=== PATIENT | female | born 1960 | race Caucasian/White ===

== ENCOUNTER 2018-04-14 06:24 | Emergency (ER) | payer OTHER ==
[2018-04-14 06:53] LABS: ADD MAN DIFF? NO
[2018-04-14] MEDS: HYDROmorphONE 1 MG/ML SYG IV (06:54)
[2018-04-14] MEDS: ONDANSETRON 4 MG INJ IV (06:54)
[2018-04-14 06:56] LABS: WHITE BLOOD COUNT 4.2 10^3/ul (4.8-10.8)
[2018-04-14 06:56] LABS: EOSINOPHILS # 0.1 10^3/ul (0.0-0.5); EOSINOPHILS % 3.1 % (0.0-7.0); HEMATOCRIT 42.6 % (37.0-47.0); HEMOGLOBIN 14.4 g/dl (12.0-16.0); LYMPHOCYTES # 1.5 10^3/ul (0.8-2.9); LYMPHOCYTES % 35.1 % (15.0-51.0); MEAN CORPUSCULAR HEMOGLOBIN 30.2 pg (29.0-33.0); MEAN CORPUSCULAR HGB CONC 33.8 g/dl (32.0-37.0); MEAN CORPUSCULAR VOLUME 89.3 fl (82.0-101.0); MEAN PLATELET VOLUME 9.8 fl (7.4-10.4); MONOCYTE # 0.4 10^3/ul (0.3-0.9); MONOCYTES % 10.6 % (0.0-11.0); NEUTROPHIL # 2.1 10^3/ul (1.6-7.5); PLATELET COUNT 267 10^3/UL (140-415); RED BLOOD COUNT 4.77 10^6/ul (4.20-5.40); RED CELL DISTRIBUTION WIDTH 13.2 % (11.5-14.5)
[2018-04-14 06:57] LABS: ADD UMIC YES; UR ASCORBIC ACID NEGATIVE (NEGATIVE); UR BILIRUBIN (Dip) NEGATIVE (NEGATIVE); UR BLOOD (Dip) NEGATIVE (NEGATIVE); UR CLARITY CLEAR (CLEAR); UR COLOR STRAW (YELLOW); UR GLUCOSE (Dip) NEGATIVE (NEGATIVE); UR KETONES (Dip) NEGATIVE (NEGATIVE); UR LEUKOCYTE ESTERASE (Dip) TRACE Leu/ul (NEGATIVE); UR NITRITE (Dip) NEGATIVE (NEGATIVE); UR RBC 0 /HPF (0-5); UR TOTAL PROTEIN (Dip) NEGATIVE (NEGATIVE); UR UROBILINOGEN (Dip) NEGATIVE (NEGATIVE); UR WBC 3 /HPF (0-5)
[2018-04-14 07:17] LABS: INR 0.87; PROTIME 11.9 Sec (11.9-14.9); PT RATIO 0.9
[2018-04-14 07:18] LABS: PARTIAL THROMBOPLASTIN TIME 29.6 Sec (25.0-35.0)
[2018-04-14 07:24] LABS: ALANINE AMINOTRANSFERASE 26 IU/L (13-69); ALBUMIN 3.5 g/dl (3.3-4.9); ALBUMIN/GLOBULIN RATIO 1.16; ALKALINE PHOSPHATASE 73 IU/L (42-121); ANION GAP 14 (8-16); ASPARTATE AMINO TRANSFERASE 20 IU/L (15-46); BILIRUBIN,INDIRECT 0.4 mg/dl (0-1.1); BILIRUBIN,TOTAL 0.4 mg/dl (0.2-1.3); BLOOD UREA NITROGEN 24 mg/dl (7-20); CALCIUM 8.6 mg/dl (8.4-10.2); CARBON DIOXIDE 28 mmol/L (21-31); CHLORIDE 105 mmol/L (97-110); CREATININE 0.71 mg/dl (0.44-1.00); GLUCOSE 100 mg/dl (70-220); LIPASE 74 U/L (23-300); POTASSIUM 3.5 mmol/L (3.5-5.1); SODIUM 143 mmol/L (135-144); TOTAL PROTEIN 6.5 g/dl (6.1-8.1)
[2018-04-14] MEDS: SOD CHLORIDE 0.9% 1,000 ML IV (07:55)
== END 2018-04-14 11:11 | disposition short-term general hospital (02) ==
LOC: E/R 06:24
DX: R10.84 Generalized abdominal pain (principal); R19.09 Other intra-abdominal and pelvic swelling, mass and lump; I10 Essential (primary) hypertension; C73 Malignant neoplasm of thyroid gland; Z79.82 Long term (current) use of aspirin
CPT/HCPCS: 36415; 71045; 80053; 81001; 83690; 85025; 85610; 85730; 96361; 96374; 96375; 99285-25

== ENCOUNTER 2018-04-27 07:30 | Inpatient (IN) | payer OTHER ==
[2018-04-27] MEDS: ONDANSETRON 4 MG INJ IV ×2 (09:20→12:27)
[2018-04-27] MEDS: HYDROmorphONE 1 MG/ML SYG IV ×5 (09:20→20:17)
[2018-04-27 09:23] LABS: ADD MAN DIFF? NO
[2018-04-27 09:32] LABS: BASOPHILS % 0.7 % (0.0-2.0); EOSINOPHILS # 0.1 10^3/ul (0.0-0.5); EOSINOPHILS % 2.2 % (0.0-7.0); HEMATOCRIT 43.5 % (37.0-47.0); HEMOGLOBIN 14.8 g/dl (12.0-16.0); LYMPHOCYTES # 1.4 10^3/ul (0.8-2.9); LYMPHOCYTES % 26.1 % (15.0-51.0); MEAN CORPUSCULAR HEMOGLOBIN 30.3 pg (29.0-33.0); MEAN PLATELET VOLUME 10.5 fl (7.4-10.4); MONOCYTE # 0.7 10^3/ul (0.3-0.9); MONOCYTES % 12.4 % (0.0-11.0); NEUTROPHIL # 3.2 10^3/ul (1.6-7.5); NEUTROPHILS % 58.4 % (39.0-77.0); PLATELET COUNT 262 10^3/UL (140-415); RED BLOOD COUNT 4.89 10^6/ul (4.20-5.40)
[2018-04-27 09:32] LABS: WHITE BLOOD COUNT 5.4 10^3/ul (4.8-10.8)
[2018-04-27 09:50] LABS: ALANINE AMINOTRANSFERASE 67 IU/L (13-69); ALBUMIN 3.6 g/dl (3.3-4.9); ALBUMIN/GLOBULIN RATIO 1.16; ALKALINE PHOSPHATASE 93 IU/L (42-121); ANION GAP 12 (8-16); ASPARTATE AMINO TRANSFERASE 102 IU/L (15-46); BILIRUBIN,INDIRECT 0.5 mg/dl (0-1.1); BILIRUBIN,TOTAL 0.5 mg/dl (0.2-1.3); BLOOD UREA NITROGEN 21 mg/dl (7-20); CALCIUM 8.8 mg/dl (8.4-10.2); CARBON DIOXIDE 30 mmol/L (21-31); CREATININE 0.66 mg/dl (0.44-1.00); GLUCOSE 102 mg/dl (70-220); POTASSIUM 3.8 mmol/L (3.5-5.1); SODIUM 141 mmol/L (135-144); TOTAL PROTEIN 6.7 g/dl (6.1-8.1)
[2018-04-27 09:54] LABS: CHLORIDE 103 mmol/L (97-110)
[2018-04-27] MEDS: IOHEXOL 300MG/ML 150 ML BTL (10:15)
[2018-04-27] MEDS: SOD CHLORIDE 0.9% 100 ML (10:15)
[2018-04-27 10:18] LABS: LIPASE 9179 U/L (23-300)
[2018-04-27] MEDS: SOD CHLORIDE 0.9% 1,000 ML IV (12:25)
[2018-04-27] MEDS ORDERED: SOD CHLORIDE 0.9% 1,000 ML IV (12:27)
[2018-04-27] MEDS ORDERED: BISACODYL 10 MG SUPP PR (12:30)
[2018-04-27] MEDS ORDERED: ACETAMINOPHEN 650 MG SUPP PR (12:30)
[2018-04-27] MEDS ORDERED: morphine 2 MG INJ IV (12:30)
[2018-04-27] MEDS ORDERED: ACETAMINOPHEN 325 MG TAB PO (12:30)
[2018-04-27] MEDS ORDERED: ONDANSETRON 4 MG INJ IV ×2 (12:30)
[2018-04-27] MEDS ORDERED: NACL 0.9% 3 ML SYG IV (12:30)
[2018-04-27] MEDS ORDERED: MECLIZINE 25 MG TAB PO (13:00)
[2018-04-27] MEDS: DEXTROSE 5%-0.9% NACL 1,000 ML IV (14:23)
[2018-04-27] MEDS: ATORVASTATIN 10 MG TAB PO (20:15)
[2018-04-27] MEDS: DOCUSATE SODIUM 100 MG CAP PO (20:20)
[2018-04-28] MEDS: HYDROmorphONE 1 MG/ML SYG IV ×2 (00:13→22:21)
[2018-04-28] MEDS: DEXTROSE 5%-0.9% NACL 1,000 ML IV ×4 (00:30→21:14)
[2018-04-28] MEDS: PANTOPRAZOLE 40 MG INJ IV (05:38)
[2018-04-28] MEDS: LEVOTHYROXINE 100 MCG VIAL IV (05:38)
[2018-04-28] MEDS: HYDROmorphONE 0.5 MG/0.5 ML SYG IV ×2 (05:39→12:31)
[2018-04-28 05:46] LABS: ADD MAN DIFF? NO
[2018-04-28 06:05] LABS: BASOPHILS % 0.9 % (0.0-2.0); EOSINOPHILS # 0.1 10^3/ul (0.0-0.5); HEMATOCRIT 41.9 % (37.0-47.0); LYMPHOCYTES # 1.4 10^3/ul (0.8-2.9); LYMPHOCYTES % 41.1 % (15.0-51.0); MEAN CORPUSCULAR HGB CONC 33.4 g/dl (32.0-37.0); MEAN CORPUSCULAR VOLUME 89.9 fl (82.0-101.0); MONOCYTE # 0.5 10^3/ul (0.3-0.9); MONOCYTES % 14.4 % (0.0-11.0); NEUTROPHIL # 1.3 10^3/ul (1.6-7.5); NEUTROPHILS % 40.3 % (39.0-77.0); PLATELET COUNT 235 10^3/UL (140-415); RED BLOOD COUNT 4.66 10^6/ul (4.20-5.40)
[2018-04-28 06:05] LABS: WHITE BLOOD COUNT 3.3 10^3/ul (4.8-10.8)
[2018-04-28 06:19] LABS: INR 0.99; PROTIME 13.2 Sec (11.9-14.9)
[2018-04-28] MEDS ORDERED: FENTAnyl 50 MCG/ML VIAL (07:00)
[2018-04-28] MEDS ORDERED: LEVOTHYROXINE 150 MCG TAB PO (07:00)
[2018-04-28 07:15] LABS: ALANINE AMINOTRANSFERASE 56 IU/L (13-69); ALBUMIN 3.3 g/dl (3.3-4.9); ALBUMIN/GLOBULIN RATIO 1.22; ALKALINE PHOSPHATASE 76 IU/L (42-121); AMYLASE 102 U/L (11-123); ANION GAP 10 (8-16); ASPARTATE AMINO TRANSFERASE 61 IU/L (15-46); BILIRUBIN,INDIRECT 0.6 mg/dl (0-1.1); BILIRUBIN,TOTAL 0.6 mg/dl (0.2-1.3); BLOOD UREA NITROGEN 13 mg/dl (7-20); CALCIUM 8.3 mg/dl (8.4-10.2); CARBON DIOXIDE 33 mmol/L (21-31); CHLORIDE 104 mmol/L (97-110); CHOL/HDL RATIO 3.5 RATIO; CHOLESTEROL 127 mg/dl (100-200); CREATININE 0.66 mg/dl (0.44-1.00); GLUCOSE 107 mg/dl (70-220); HDL CHOLESTEROL 36 mg/dl (37-92); LDL CHOLESTEROL,CALCULATED 63 mg/dl; LIPASE 126 U/L (23-300); POTASSIUM 3.9 mmol/L (3.5-5.1); SODIUM 143 mmol/L (135-144); TRIGLYCERIDES 138 mg/dl (0-149)
[2018-04-28] MEDS: CITALOPRAM 20 MG TAB PO (08:48)
[2018-04-28] MEDS: LOSARTAN 25 MG TAB PO (08:48)
[2018-04-28] MEDS: CALCIUM CARBONATE 1.25 GM TAB PO (08:48)
[2018-04-28] MEDS ORDERED: PROPOFOL 20 ML (18:29)
[2018-04-28] MEDS ORDERED: HYDROmorphONE 1 MG/5 ML IV SYRINGE IV ×3 (18:30)
[2018-04-28] MEDS ORDERED: MEPERIDINE 25 MG INJ IV (18:30)
[2018-04-28] MEDS ORDERED: DIPHENHYDRAMINE 50 MG INJ IV (18:30)
[2018-04-28] MEDS ORDERED: ONDANSETRON 4 MG INJ IV (18:30)
[2018-04-28] MEDS ORDERED: ONDANSETRON 4 MG INJ (18:53)
[2018-04-28] MEDS ORDERED: SUCCINYLCHOLINE CHLORIDE 100 MG/5 ML SYG IV (18:53)
[2018-04-28] MEDS ORDERED: METOCLOPRAMIDE 10 MG INJ (18:53)
[2018-04-28] MEDS: INDOMETHACIN 50 MG SUPP PR (19:00)
[2018-04-28] MEDS ORDERED: CEFAZOLIN 1 GM INJ (19:33)
[2018-04-28] MEDS: ATORVASTATIN 10 MG TAB PO (22:21)
[2018-04-29] MEDS: PANTOPRAZOLE 40 MG INJ IV (05:20)
[2018-04-29] MEDS: HYDROmorphONE 0.5 MG/0.5 ML SYG IV (05:21)
[2018-04-29] MEDS: LEVOTHYROXINE 100 MCG VIAL IV (05:21)
[2018-04-29 06:19] LABS: ADD MAN DIFF? NO
[2018-04-29 06:32] LABS: WHITE BLOOD COUNT 3.8 10^3/ul (4.8-10.8)
[2018-04-29 06:32] LABS: BASOPHILS % 0.5 % (0.0-2.0); EOSINOPHILS # 0.1 10^3/ul (0.0-0.5); EOSINOPHILS % 1.8 % (0.0-7.0); HEMATOCRIT 40.2 % (37.0-47.0); HEMOGLOBIN 13.5 g/dl (12.0-16.0); MEAN CORPUSCULAR HEMOGLOBIN 29.8 pg (29.0-33.0); MEAN CORPUSCULAR HGB CONC 33.6 g/dl (32.0-37.0); MEAN CORPUSCULAR VOLUME 88.7 fl (82.0-101.0); MEAN PLATELET VOLUME 9.9 fl (7.4-10.4); MONOCYTE # 0.4 10^3/ul (0.3-0.9); MONOCYTES % 11.2 % (0.0-11.0); NEUTROPHIL # 2.4 10^3/ul (1.6-7.5); NEUTROPHILS % 61.2 % (39.0-77.0); PLATELET COUNT 246 10^3/UL (140-415); RED BLOOD COUNT 4.53 10^6/ul (4.20-5.40); RED CELL DISTRIBUTION WIDTH 13.1 % (11.5-14.5)
[2018-04-29 07:10] LABS: ALANINE AMINOTRANSFERASE 54 IU/L (13-69); ALBUMIN 3.3 g/dl (3.3-4.9); ALBUMIN/GLOBULIN RATIO 1.22; ALKALINE PHOSPHATASE 82 IU/L (42-121); AMYLASE 64 U/L (11-123); ANION GAP 10 (8-16); ASPARTATE AMINO TRANSFERASE 43 IU/L (15-46); BILIRUBIN,INDIRECT 0.7 mg/dl (0-1.1); BILIRUBIN,TOTAL 0.7 mg/dl (0.2-1.3); BLOOD UREA NITROGEN 11 mg/dl (7-20); CALCIUM 8.2 mg/dl (8.4-10.2); CARBON DIOXIDE 29 mmol/L (21-31); CHLORIDE 106 mmol/L (97-110); CREATININE 0.55 mg/dl (0.44-1.00); GLUCOSE 117 mg/dl (70-220); LIPASE 68 U/L (23-300); POTASSIUM 3.2 mmol/L (3.5-5.1); SODIUM 142 mmol/L (135-144)
[2018-04-29] MEDS: CALCIUM CARBONATE 1.25 GM TAB PO (08:50)
[2018-04-29] MEDS: CITALOPRAM 20 MG TAB PO (08:50)
[2018-04-29] MEDS: LOSARTAN 25 MG TAB PO (08:51)
[2018-04-29] MEDS: MAGNESIUM HYDROXIDE 30ML CUP PO (08:57)
[2018-04-29] MEDS: DEXTROSE 5%-0.9% NACL 1,000 ML IV ×2 (10:10)
[2018-04-29] MEDS: POTASSIUM CHLORIDE (SR) 20 MEQ TAB PO (12:00)
[2018-04-29] MEDS ORDERED: HYDROmorphONE 4 MG TAB PO (12:00)
[2018-04-29] MEDS: MINERAL OIL 30ML CUP PO ×2 (13:12→20:09)
[2018-04-29] MEDS: HYDROmorphONE 2 MG TAB PO (14:41)
[2018-04-29] MEDS: HYDROCODONE/APAP (10/325) TAB PO ×2 (18:18→22:53)
[2018-04-29] MEDS: ATORVASTATIN 10 MG TAB PO (20:09)
[2018-04-30] MEDS: ACETAMINOPHEN 325 MG TAB PO (01:43)
[2018-04-30] MEDS ORDERED: HYDROmorphONE 2 MG TAB PO (02:30)
[2018-04-30] MEDS: HYDROmorphONE 2 MG TAB PO ×2 (02:57→21:05)
[2018-04-30] MEDS: LEVOTHYROXINE 150 MCG TAB PO (05:16)
[2018-04-30] MEDS: PANTOPRAZOLE (EC) 40 MG TAB PO (05:16)
[2018-04-30 06:53] LABS: MAGNESIUM 1.9 mg/dl (1.7-2.5)
[2018-04-30 06:53] LABS: PHOSPHORUS 3.3 mg/dl (2.5-4.9)
[2018-04-30 07:10] LABS: ANION GAP 11 (8-16); BLOOD UREA NITROGEN 15 mg/dl (7-20); CARBON DIOXIDE 30 mmol/L (21-31); CHLORIDE 104 mmol/L (97-110); GLUCOSE 101 mg/dl (70-220); POTASSIUM 3.7 mmol/L (3.5-5.1); SODIUM 141 mmol/L (135-144)
[2018-04-30] MEDS: MINERAL OIL 30ML CUP PO ×3 (08:53→20:32)
[2018-04-30] MEDS: CITALOPRAM 20 MG TAB PO (08:53)
[2018-04-30] MEDS: CALCIUM CARBONATE 1.25 GM TAB PO (08:53)
[2018-04-30] MEDS: LOSARTAN 25 MG TAB PO (08:54)
[2018-04-30] MEDS: BISACODYL (EC) 5 MG TAB PO (11:34)
[2018-04-30] MEDS ORDERED: HYDROmorphONE 0.5 MG/0.5 ML SYG IV (12:00)
[2018-04-30] MEDS: MINERAL OIL 133 ML ENEMA PR (13:14)
[2018-04-30] MEDS: ATORVASTATIN 10 MG TAB PO (20:32)
[2018-05-01] MEDS: LEVOTHYROXINE 150 MCG TAB PO (05:38)
[2018-05-01] MEDS: PANTOPRAZOLE (EC) 40 MG TAB PO (05:38)
[2018-05-01 06:15] LABS: ADD MAN DIFF? NO
[2018-05-01 06:19] LABS: WHITE BLOOD COUNT 3.7 10^3/ul (4.8-10.8)
[2018-05-01 06:19] LABS: BASOPHILS % 1.1 % (0.0-2.0); EOSINOPHILS # 0.1 10^3/ul (0.0-0.5); EOSINOPHILS % 3.8 % (0.0-7.0); HEMATOCRIT 41.3 % (37.0-47.0); HEMOGLOBIN 13.8 g/dl (12.0-16.0); LYMPHOCYTES # 1.5 10^3/ul (0.8-2.9); LYMPHOCYTES % 39.6 % (15.0-51.0); MEAN CORPUSCULAR HEMOGLOBIN 29.7 pg (29.0-33.0); MEAN CORPUSCULAR HGB CONC 33.4 g/dl (32.0-37.0); MEAN PLATELET VOLUME 9.8 fl (7.4-10.4); MONOCYTE # 0.5 10^3/ul (0.3-0.9); MONOCYTES % 12.6 % (0.0-11.0); NEUTROPHIL # 1.6 10^3/ul (1.6-7.5); NEUTROPHILS % 42.6 % (39.0-77.0); PLATELET COUNT 249 10^3/UL (140-415); RED BLOOD COUNT 4.64 10^6/ul (4.20-5.40)
[2018-05-01 06:39] LABS: ANION GAP 10 (8-16); BLOOD UREA NITROGEN 14 mg/dl (7-20); CALCIUM 8.5 mg/dl (8.4-10.2); CARBON DIOXIDE 29 mmol/L (21-31); CHLORIDE 106 mmol/L (97-110); CREATININE 0.65 mg/dl (0.44-1.00); GLUCOSE 92 mg/dl (70-220); POTASSIUM 3.6 mmol/L (3.5-5.1); SODIUM 141 mmol/L (135-144)
[2018-05-01 06:41] LABS: MAGNESIUM 2.1 mg/dl (1.7-2.5)
[2018-05-01 06:43] LABS: INR 0.95; PROTIME 12.8 Sec (11.9-14.9)
[2018-05-01 06:44] LABS: PARTIAL THROMBOPLASTIN TIME 30.5 Sec (25.0-35.0)
[2018-05-01] MEDS: MINERAL OIL 30ML CUP PO ×5 (08:14→20:10)
[2018-05-01] MEDS: CALCIUM CARBONATE 1.25 GM TAB PO (08:14)
[2018-05-01] MEDS: LOSARTAN 25 MG TAB PO (08:15)
[2018-05-01] MEDS: BISACODYL (EC) 5 MG TAB PO (08:15)
[2018-05-01] MEDS: CITALOPRAM 20 MG TAB PO (08:16)
[2018-05-01] MEDS: HYDROmorphONE 1 MG/ML SYG IV (10:24)
[2018-05-01] MEDS: LIDOCAINE 1% (MDV) 10 ML INJ ×2 (15:25)
[2018-05-01] MEDS: MIDAZOLAM 1 MG/ML 2 ML INJ (15:31)
[2018-05-01] MEDS: FENTAnyl 50 MCG/ML VIAL (15:32)
[2018-05-01] MEDS: SOD CHLORIDE 0.9% 500 ML (15:32)
[2018-05-01] MEDS: HYDROmorphONE 2 MG TAB PO (19:52)
[2018-05-01] MEDS: ATORVASTATIN 10 MG TAB PO (20:08)
[2018-05-02] MEDS: ACETAMINOPHEN 325 MG TAB PO (02:06)
[2018-05-02] MEDS: PANTOPRAZOLE (EC) 40 MG TAB PO (06:00)
[2018-05-02] MEDS: LEVOTHYROXINE 150 MCG TAB PO (06:00)
[2018-05-02] MEDS: HYDROmorphONE 2 MG TAB PO ×4 (06:05→21:32)
[2018-05-02] MEDS: BISACODYL (EC) 5 MG TAB PO (08:25)
[2018-05-02] MEDS: CITALOPRAM 20 MG TAB PO (08:25)
[2018-05-02] MEDS: LOSARTAN 25 MG TAB PO (08:26)
[2018-05-02] MEDS: MINERAL OIL 30ML CUP PO ×2 (08:29→13:54)
[2018-05-02] MEDS: CALCIUM CARBONATE 1.25 GM TAB PO (08:29)
[2018-05-02] MEDS ORDERED: MINERAL OIL 30ML CUP PO (14:30)
[2018-05-02] MEDS ORDERED: BETAMET NA PHOS/AC(6 MG/ML) 5ML INJ INJ (16:00)
[2018-05-02] MEDS ORDERED: BUPIVACAINE 0.5%/EPI (SDV) 30 ML INJ INJ (16:00)
[2018-05-02 18:29] LABS: CARCINOEMBRYONIC ANTIGEN 2.7 ng/ml (0.0-5.0)
[2018-05-02 18:33] LABS: CANCER ANTIGEN 19-9 10.4 U/ml (0.0-37.0)
[2018-05-02] MEDS: ATORVASTATIN 10 MG TAB PO (21:24)
[2018-05-02] MEDS: DOCUSATE SODIUM 100 MG CAP PO (21:32)
[2018-05-03] MEDS: HYDROmorphONE 2 MG TAB PO ×3 (03:21→18:13)
[2018-05-03] MEDS: LEVOTHYROXINE 150 MCG TAB PO (05:51)
[2018-05-03] MEDS: PANTOPRAZOLE (EC) 40 MG TAB PO (05:51)
[2018-05-03] MEDS: CALCIUM CARBONATE 1.25 GM TAB PO (08:46)
[2018-05-03] MEDS: CITALOPRAM 20 MG TAB PO (08:46)
[2018-05-03] MEDS: BISACODYL (EC) 5 MG TAB PO (08:47)
[2018-05-03] MEDS: LOSARTAN 25 MG TAB PO (08:48)
[2018-05-03] MEDS: MAGNESIUM HYDROXIDE 30ML CUP PO (08:52)
[2018-05-03] MEDS ORDERED: MAGNESIUM HYDROXIDE 30ML CUP PO (17:30)
== END 2018-05-03 20:35 | disposition home or self-care (01) | DRG 440 ==
LOC: E/R 07:30 → MS2 04-28 22:55
PROC: 0F798ZZ Dilation of Common Bile Duct, Via Natural or Artificial Opening Endoscopic (ICD-10-PCS; principal; 2018-04-28 16:00)
PROC: BF10YZZ Fluoroscopy of Bile Ducts using Other Contrast (ICD-10-PCS; 2018-04-28 16:00)
PROC: 0S993ZZ Drainage of Right Hip Joint, Percutaneous Approach (ICD-10-PCS; 2018-04-28 18:38)
DX: K85.90 Acute pancreatitis without necrosis or infection, unspecified (principal); E03.9 Hypothyroidism, unspecified; I10 Essential (primary) hypertension; R16.1 Splenomegaly, not elsewhere classified; E78.5 Hyperlipidemia, unspecified; K83.9 Disease of biliary tract, unspecified; E87.6 Hypokalemia; K66.9 Disorder of peritoneum, unspecified; M70.61 Trochanteric bursitis, right hip
CPT/HCPCS: 36415; 72170; 74177; 74181; 74330; 77012; 80048; 80053; 80061; 82150; 82378; 82382; 83690; 83735; 83835; 84100; 85025; 85610; 85730; 86301; 87081; 96374; 96375; 96376; 99285-25

== ENCOUNTER 2018-06-07 06:14 | Inpatient (IN) | payer OTHER ==
[2018-06-07] MEDS ORDERED: CEFAZOLIN 1 GM INJ (07:00)
[2018-06-07] MEDS: CEFAZOLIN 1 GM/50 ML (PMX) 50 ML IVPB (07:00)
[2018-06-07 07:42] LABS: ADD MAN DIFF? NO
[2018-06-07 07:44] LABS: BASOPHILS % 0.7 % (0.0-2.0); EOSINOPHILS # 0.1 10^3/ul (0.0-0.5); EOSINOPHILS % 2.3 % (0.0-7.0); HEMATOCRIT 41.3 % (37.0-47.0); HEMOGLOBIN 13.9 g/dl (12.0-16.0); LYMPHOCYTES # 1.4 10^3/ul (0.8-2.9); LYMPHOCYTES % 32.7 % (15.0-51.0); MEAN CORPUSCULAR HEMOGLOBIN 29.7 pg (29.0-33.0); MEAN CORPUSCULAR HGB CONC 33.7 g/dl (32.0-37.0); MEAN CORPUSCULAR VOLUME 88.2 fl (82.0-101.0); MEAN PLATELET VOLUME 9.9 fl (7.4-10.4); MONOCYTE # 0.4 10^3/ul (0.3-0.9); MONOCYTES % 8.7 % (0.0-11.0); NEUTROPHIL # 2.4 10^3/ul (1.6-7.5); NEUTROPHILS % 55.4 % (39.0-77.0); PLATELET COUNT 282 10^3/UL (140-415); RED BLOOD COUNT 4.68 10^6/ul (4.20-5.40)
[2018-06-07 07:44] LABS: WHITE BLOOD COUNT 4.4 10^3/ul (4.8-10.8)
[2018-06-07] MEDS: SOD CHLORIDE 0.9% 1,000 ML IV (07:48)
[2018-06-07 08:03] LABS: INR 0.88; PARTIAL THROMBOPLASTIN TIME 30.2 Sec (25.0-35.0); PT RATIO 0.9
[2018-06-07 08:07] LABS: HOLD TRANSMISSIONS 1
[2018-06-07 08:09] LABS: ALANINE AMINOTRANSFERASE 18 IU/L (13-69); ALBUMIN 3.4 g/dl (3.3-4.9); ALBUMIN/GLOBULIN RATIO 1.21; ALKALINE PHOSPHATASE 63 IU/L (42-121); ANION GAP 14 (8-16); ASPARTATE AMINO TRANSFERASE 23 IU/L (15-46); BILIRUBIN,INDIRECT 0.3 mg/dl (0-1.1); BILIRUBIN,TOTAL 0.3 mg/dl (0.2-1.3); BLOOD UREA NITROGEN 18 mg/dl (7-20); CALCIUM 8.6 mg/dl (8.4-10.2); CARBON DIOXIDE 24 mmol/L (21-31); CHLORIDE 110 mmol/L (97-110); GLUCOSE 103 mg/dl (70-220); POTASSIUM 3.6 mmol/L (3.5-5.1); SODIUM 144 mmol/L (135-144); TOTAL PROTEIN 6.2 g/dl (6.1-8.1)
[2018-06-07] MEDS ORDERED: hydrALAzine 20 MG INJ IV (11:00)
[2018-06-07] MEDS ORDERED: ONDANSETRON 4 MG INJ IV (11:00)
[2018-06-07] MEDS ORDERED: OXYCODONE/ACETAMINOPHEN (5/325) TAB PO ×2 (11:00)
[2018-06-07] MEDS ORDERED: MIDAZOLAM 1 MG/ML 2 ML INJ IV (11:00)
[2018-06-07] MEDS ORDERED: HYDROmorphONE 1 MG/5 ML IV SYRINGE IV ×3 (11:00)
[2018-06-07] MEDS ORDERED: morphine (1 MG/ML) 10ML SYRINGE IV ×3 (11:00)
[2018-06-07] MEDS ORDERED: ATROPINE 1 MG/10 ML SYRINGE IV (11:00)
[2018-06-07] MEDS ORDERED: FENTAnyl 50 MCG/ML VIAL IV ×2 (11:00)
[2018-06-07] MEDS ORDERED: DIPHENHYDRAMINE 50 MG INJ IV (11:00)
[2018-06-07] MEDS ORDERED: LABETALOL HCL 20MG INJ IV (11:00)
[2018-06-07] MEDS ORDERED: EPHEDrine SULFATE 50 MG/5 ML SYG IV (11:00)
[2018-06-07] MEDS ORDERED: PROPOFOL 20 ML (11:02)
[2018-06-07] MEDS ORDERED: LIDOCAINE 2% (SDV) 5 ML INJ (11:02)
[2018-06-07] MEDS ORDERED: ROCURONIUM 50 MG INJ (11:02)
[2018-06-07] MEDS ORDERED: MIDAZOLAM 1 MG/ML 2 ML INJ (11:02)
[2018-06-07] MEDS ORDERED: NEOSTIGMINE 3 MG/3 ML SYRINGE (11:02)
[2018-06-07] MEDS ORDERED: GLYCOPYRROLATE 0.4 MG INJ (11:02)
[2018-06-07] MEDS ORDERED: ONDANSETRON 4 MG INJ (11:03)
[2018-06-07] MEDS ORDERED: FENTAnyl 50 MCG/ML VIAL ×2 (11:03→13:42)
[2018-06-07] MEDS ORDERED: DEXAMETHASONE 4 MG/ML 1 ML INJ (11:03)
[2018-06-07] MEDS ORDERED: METOCLOPRAMIDE 10 MG INJ (11:03)
[2018-06-07] MEDS ORDERED: SUCCINYLCHOLINE CHLORIDE 100 MG/5 ML SYG IV (11:07)
[2018-06-07] MEDS ORDERED: hydrALAzine 20 MG INJ (13:02)
[2018-06-07] MEDS: BUPIVACAINE 0.5% (SDV) 30 ML INJ (14:03)
[2018-06-07] MEDS ORDERED: SUGAMMADEX SODIUM 200 MG/2 ML VIAL IV (14:26)
[2018-06-07] MEDS: MEPERIDINE 25 MG INJ IV (15:18)
[2018-06-07 16:02] LABS: ADD MAN DIFF? NO
[2018-06-07 16:05] LABS: WHITE BLOOD COUNT 13.6 10^3/ul (4.8-10.8)
[2018-06-07 16:05] LABS: BASOPHILS % 0.3 % (0.0-2.0); EOSINOPHILS % 0.1 % (0.0-7.0); HEMATOCRIT 41.5 % (37.0-47.0); LYMPHOCYTES # 0.8 10^3/ul (0.8-2.9); LYMPHOCYTES % 5.9 % (15.0-51.0); MEAN CORPUSCULAR HEMOGLOBIN 30.7 pg (29.0-33.0); MEAN CORPUSCULAR HGB CONC 33.7 g/dl (32.0-37.0); MEAN PLATELET VOLUME 9.9 fl (7.4-10.4); MONOCYTE # 0.4 10^3/ul (0.3-0.9); MONOCYTES % 3.2 % (0.0-11.0); NEUTROPHIL # 12.3 10^3/ul (1.6-7.5); NEUTROPHILS % 90.1 % (39.0-77.0); PLATELET COUNT 267 10^3/UL (140-415); RED BLOOD COUNT 4.56 10^6/ul (4.20-5.40); RED CELL DISTRIBUTION WIDTH 13.9 % (11.5-14.5)
[2018-06-07 16:18] LABS: HOLD TRANSMISSIONS 1
[2018-06-07] MEDS: HYDROCODONE/APAP (5/325) TAB PO (17:49)
[2018-06-07] MEDS: KETOROLAC 30 MG INJ IV (17:49)
[2018-06-07] MEDS: CEFAZOLIN 2 GM/50 ML (PMX) 50 ML IVPB ×2 (18:40→22:09)
[2018-06-07] MEDS: D5W-0.45 NACL + KCL 20 MEQ 1,000 ML IV (18:51)
[2018-06-07] MEDS: morphine 2 MG INJ IV (18:54)
[2018-06-07] MEDS ORDERED: NALOXONE (0.4 MG/ML) INJ IV (20:30)
[2018-06-07] MEDS: HYDROmorphONE 0.2 MG/ML PCA IV (21:01)
[2018-06-07] MEDS: ATORVASTATIN 10 MG TAB PO (22:13)
[2018-06-08] MEDS: ONDANSETRON 4 MG INJ IV ×4 (02:53→21:12)
[2018-06-08] MEDS: PANTOPRAZOLE (EC) 40 MG TAB PO (05:44)
[2018-06-08 05:51] LABS: ADD MAN DIFF? NO
[2018-06-08 05:59] LABS: WHITE BLOOD COUNT 9.3 10^3/ul (4.8-10.8)
[2018-06-08 05:59] LABS: BASOPHILS % 0.1 % (0.0-2.0); HEMATOCRIT 39.5 % (37.0-47.0); HEMOGLOBIN 13.2 g/dl (12.0-16.0); LYMPHOCYTES # 0.6 10^3/ul (0.8-2.9); LYMPHOCYTES % 6.9 % (15.0-51.0); MEAN CORPUSCULAR HEMOGLOBIN 30.5 pg (29.0-33.0); MEAN CORPUSCULAR HGB CONC 33.4 g/dl (32.0-37.0); MEAN CORPUSCULAR VOLUME 91.2 fl (82.0-101.0); MEAN PLATELET VOLUME 10.3 fl (7.4-10.4); MONOCYTE # 0.6 10^3/ul (0.3-0.9); MONOCYTES % 6.5 % (0.0-11.0); NEUTROPHILS % 85.9 % (39.0-77.0); PLATELET COUNT 291 10^3/UL (140-415); RED BLOOD COUNT 4.33 10^6/ul (4.20-5.40); RED CELL DISTRIBUTION WIDTH 13.9 % (11.5-14.5)
[2018-06-08] MEDS: D5W-0.45 NACL + KCL 20 MEQ 1,000 ML IV ×3 (06:24→19:09)
[2018-06-08] MEDS: CEFAZOLIN 2 GM/50 ML (PMX) 50 ML IVPB ×2 (06:26→15:25)
[2018-06-08 06:30] LABS: PHOSPHORUS 3.6 mg/dl (2.5-4.9)
[2018-06-08 06:30] LABS: MAGNESIUM 1.8 mg/dl (1.7-2.5)
[2018-06-08 06:41] LABS: ANION GAP 11 (8-16); BLOOD UREA NITROGEN 10 mg/dl (7-20); CARBON DIOXIDE 25 mmol/L (21-31); CHLORIDE 108 mmol/L (97-110); CREATININE 0.62 mg/dl (0.44-1.00); GLUCOSE 121 mg/dl (70-220); POTASSIUM 4.2 mmol/L (3.5-5.1); SODIUM 140 mmol/L (135-144)
[2018-06-08] MEDS: HYDROmorphONE 0.2 MG/ML PCA IV (07:00)
[2018-06-08] MEDS: LEVOTHYROXINE 150 MCG TAB PO ×2 (07:00→09:00)
[2018-06-08] MEDS: CITALOPRAM 20 MG TAB PO (09:00)
[2018-06-08] MEDS: LOSARTAN 25 MG TAB PO (09:00)
[2018-06-08] MEDS: morphine 1 MG/ML 30 ML (PCA) IV (11:04)
[2018-06-08] MEDS: ACETAMINOPHEN 1000MG/100ML IV 100 ML IVPB ×2 (13:40→19:17)
[2018-06-08] MEDS: ATORVASTATIN 10 MG TAB PO (20:31)
[2018-06-08] MEDS: HYDROmorphONE 0.5 MG/0.5 ML SYG IV (21:16)
[2018-06-09] MEDS: ACETAMINOPHEN 1000MG/100ML IV 100 ML IVPB ×2 (01:30→07:30)
[2018-06-09] MEDS: HYDROmorphONE 0.5 MG/0.5 ML SYG IV ×5 (01:32→18:54)
[2018-06-09 05:08] LABS: WHITE BLOOD COUNT 5.7 10^3/ul (4.8-10.8)
[2018-06-09 05:08] LABS: ADD MAN DIFF? NO; BASOPHILS % 0.4 % (0.0-2.0); EOSINOPHILS % 0.4 % (0.0-7.0); HEMATOCRIT 39.2 % (37.0-47.0); HEMOGLOBIN 13.1 g/dl (12.0-16.0); LYMPHOCYTES # 0.6 10^3/ul (0.8-2.9); LYMPHOCYTES % 10.7 % (15.0-51.0); MEAN CORPUSCULAR HEMOGLOBIN 30.3 pg (29.0-33.0); MEAN CORPUSCULAR HGB CONC 33.4 g/dl (32.0-37.0); MEAN CORPUSCULAR VOLUME 90.7 fl (82.0-101.0); MEAN PLATELET VOLUME 10.2 fl (7.4-10.4); MONOCYTE # 0.4 10^3/ul (0.3-0.9); MONOCYTES % 7.4 % (0.0-11.0); NEUTROPHIL # 4.6 10^3/ul (1.6-7.5); NEUTROPHILS % 80.7 % (39.0-77.0); PLATELET COUNT 208 10^3/UL (140-415); RED BLOOD COUNT 4.32 10^6/ul (4.20-5.40); RED CELL DISTRIBUTION WIDTH 14.3 % (11.5-14.5)
[2018-06-09 05:31] LABS: ANION GAP 10 (8-16); BLOOD UREA NITROGEN 6 mg/dl (7-20); CARBON DIOXIDE 26 mmol/L (21-31); CHLORIDE 109 mmol/L (97-110); CREATININE 0.61 mg/dl (0.44-1.00); GLUCOSE 125 mg/dl (70-220); POTASSIUM 3.7 mmol/L (3.5-5.1); SODIUM 141 mmol/L (135-144)
[2018-06-09] MEDS: D5W-0.45 NACL + KCL 20 MEQ 1,000 ML IV ×2 (05:35→18:54)
[2018-06-09] MEDS: PANTOPRAZOLE (EC) 40 MG TAB PO (05:36)
[2018-06-09] MEDS: LEVOTHYROXINE 150 MCG TAB PO (05:37)
[2018-06-09 05:53] LABS: PHOSPHORUS 2.4 mg/dl (2.5-4.9)
[2018-06-09 05:53] LABS: MAGNESIUM 1.8 mg/dl (1.7-2.5)
[2018-06-09] MEDS: CITALOPRAM 20 MG TAB PO (09:26)
[2018-06-09] MEDS: LOSARTAN 25 MG TAB PO (09:26)
[2018-06-09] MEDS: POTASSIUM CHLORIDE (SR) 20 MEQ TAB PO (11:17)
[2018-06-09] MEDS: ACETAMINOPHEN 325 MG TAB PO ×2 (11:23→21:12)
[2018-06-09] MEDS: MAGNESIUM SULFATE 2 GM/50 ML 50 ML IVPB (13:31)
[2018-06-09] MEDS: MAGNESIUM HYDROXIDE 30ML CUP PO (13:32)
[2018-06-09] MEDS: ATORVASTATIN 10 MG TAB PO (20:19)
[2018-06-10] MEDS: D5W-0.45 NACL + KCL 20 MEQ 1,000 ML IV ×2 (04:34→12:08)
[2018-06-10 05:08] LABS: ADD MAN DIFF? NO
[2018-06-10 05:13] LABS: BASOPHILS % 0.8 % (0.0-2.0); EOSINOPHILS # 0.1 10^3/ul (0.0-0.5); EOSINOPHILS % 1.6 % (0.0-7.0); HEMATOCRIT 43.3 % (37.0-47.0); HEMOGLOBIN 14.5 g/dl (12.0-16.0); LYMPHOCYTES # 0.7 10^3/ul (0.8-2.9); LYMPHOCYTES % 17.2 % (15.0-51.0); MEAN CORPUSCULAR HEMOGLOBIN 30.3 pg (29.0-33.0); MEAN CORPUSCULAR HGB CONC 33.5 g/dl (32.0-37.0); MEAN CORPUSCULAR VOLUME 90.4 fl (82.0-101.0); MEAN PLATELET VOLUME 9.8 fl (7.4-10.4); MONOCYTE # 0.4 10^3/ul (0.3-0.9); MONOCYTES % 10.2 % (0.0-11.0); NEUTROPHIL # 2.7 10^3/ul (1.6-7.5); NEUTROPHILS % 69.9 % (39.0-77.0); PLATELET COUNT 218 10^3/UL (140-415); RED BLOOD COUNT 4.79 10^6/ul (4.20-5.40); RED CELL DISTRIBUTION WIDTH 13.9 % (11.5-14.5)
[2018-06-10 05:13] LABS: WHITE BLOOD COUNT 3.8 10^3/ul (4.8-10.8)
[2018-06-10] MEDS: PANTOPRAZOLE (EC) 40 MG TAB PO (06:00)
[2018-06-10] MEDS: LEVOTHYROXINE 150 MCG TAB PO (06:00)
[2018-06-10] MEDS: HYDROmorphONE 0.5 MG/0.5 ML SYG IV (08:32)
[2018-06-10] MEDS: LOSARTAN 25 MG TAB PO (10:20)
[2018-06-10] MEDS: CITALOPRAM 20 MG TAB PO (10:20)
[2018-06-10] MEDS: MAGNESIUM HYDROXIDE 30ML CUP PO (12:08)
[2018-06-10] MEDS ORDERED: HYDROmorphONE 0.5 MG/0.5 ML SYG IV (13:30)
[2018-06-10] MEDS ORDERED: HYDROmorphONE 2 MG TAB PO (13:30)
[2018-06-10] MEDS ORDERED: MINERAL OIL 133 ML ENEMA PR (13:30)
[2018-06-10] MEDS ORDERED: BISACODYL 10 MG SUPP PR (13:30)
[2018-06-10] MEDS: POLYETHYLENE GLYCOL 17 GM PACKET GTB (14:01)
[2018-06-10] MEDS: POTASSIUM CHLORIDE (SR) 20 MEQ TAB PO (14:02)
[2018-06-10] MEDS: HYDROmorphONE 4 MG TAB PO ×3 (14:02→22:15)
[2018-06-10] MEDS: DOCUSATE SODIUM 100 MG CAP PO ×2 (16:23→20:10)
[2018-06-10] MEDS: MAGNESIUM SULFATE 2 GM/50 ML 50 ML IVPB (16:24)
[2018-06-10] MEDS: ATORVASTATIN 10 MG TAB PO (20:10)
[2018-06-11] MEDS: HYDROmorphONE 4 MG TAB PO ×4 (02:38→14:58)
[2018-06-11 05:18] LABS: ADD MAN DIFF? NO
[2018-06-11 05:36] LABS: WHITE BLOOD COUNT 4.8 10^3/ul (4.8-10.8)
[2018-06-11 05:36] LABS: BASOPHILS % 0.6 % (0.0-2.0); EOSINOPHILS # 0.2 10^3/ul (0.0-0.5); HEMATOCRIT 42.7 % (37.0-47.0); HEMOGLOBIN 14.2 g/dl (12.0-16.0); LYMPHOCYTES # 0.9 10^3/ul (0.8-2.9); MEAN CORPUSCULAR HEMOGLOBIN 30.3 pg (29.0-33.0); MEAN CORPUSCULAR HGB CONC 33.3 g/dl (32.0-37.0); MEAN CORPUSCULAR VOLUME 91.2 fl (82.0-101.0); MONOCYTE # 0.6 10^3/ul (0.3-0.9); MONOCYTES % 11.5 % (0.0-11.0); NEUTROPHIL # 3.1 10^3/ul (1.6-7.5); NEUTROPHILS % 65.5 % (39.0-77.0); PLATELET COUNT 238 10^3/UL (140-415); RED BLOOD COUNT 4.68 10^6/ul (4.20-5.40); RED CELL DISTRIBUTION WIDTH 13.9 % (11.5-14.5)
[2018-06-11 06:11] LABS: ANION GAP 10 (8-16); BLOOD UREA NITROGEN 12 mg/dl (7-20); CALCIUM 8.2 mg/dl (8.4-10.2); CARBON DIOXIDE 29 mmol/L (21-31); CHLORIDE 103 mmol/L (97-110); CREATININE 0.63 mg/dl (0.44-1.00); GLUCOSE 108 mg/dl (70-220); POTASSIUM 4.9 mmol/L (3.5-5.1); SODIUM 137 mmol/L (135-144)
[2018-06-11] MEDS: PANTOPRAZOLE (EC) 40 MG TAB PO (06:18)
[2018-06-11] MEDS: LEVOTHYROXINE 150 MCG TAB PO (06:18)
[2018-06-11 06:28] LABS: MAGNESIUM 2.3 mg/dl (1.7-2.5)
[2018-06-11] MEDS: POLYETHYLENE GLYCOL 17 GM PACKET GTB (09:34)
[2018-06-11] MEDS: CITALOPRAM 20 MG TAB PO (09:34)
[2018-06-11] MEDS: LOSARTAN 25 MG TAB PO (09:34)
[2018-06-11] MEDS: DOCUSATE SODIUM 100 MG CAP PO (09:34)
== END 2018-06-11 16:00 | disposition home or self-care (01) | DRG 828 ==
LOC: SDS 06:14 → MS1 18:00
PROC: 0WBH4ZZ Excision of Retroperitoneum, Percutaneous Endoscopic Approach (ICD-10-PCS; principal; 2018-06-07 09:00)
PROC: 0DNU4ZZ Release Omentum, Percutaneous Endoscopic Approach (ICD-10-PCS; 2018-06-07 11:36)
DX: C48.0 Malignant neoplasm of retroperitoneum (principal); I10 Essential (primary) hypertension; E03.9 Hypothyroidism, unspecified; E78.5 Hyperlipidemia, unspecified; K66.0 Peritoneal adhesions (postprocedural) (postinfection)
CPT/HCPCS: 71045; 80048; 80053; 83735; 84100; 85025; 85610; 85730; 87086; 88309; 88341; 88342; 93005

== ENCOUNTER 2019-02-12 08:12 | Emergency (ER) | payer OTHER ==
[2019-02-12] MEDS: KETOROLAC 30 MG INJ IV (08:46)
[2019-02-12 08:47] LABS: ADD MAN DIFF? NO
[2019-02-12 08:55] LABS: BASOPHILS % 0.6 % (0.0-2.0); EOSINOPHILS # 0.1 10^3/ul (0.0-0.5); EOSINOPHILS % 2.8 % (0.0-7.0); HEMATOCRIT 43.4 % (37.0-47.0); HEMOGLOBIN 14.4 g/dl (12.0-16.0); LYMPHOCYTES # 1.3 10^3/ul (0.8-2.9); MEAN CORPUSCULAR HEMOGLOBIN 28.9 pg (29.0-33.0); MEAN CORPUSCULAR HGB CONC 33.2 g/dl (32.0-37.0); MEAN CORPUSCULAR VOLUME 87.1 fl (82.0-101.0); MEAN PLATELET VOLUME 9.5 fl (7.4-10.4); MONOCYTE # 0.4 10^3/ul (0.3-0.9); MONOCYTES % 10.3 % (0.0-11.0); NEUTROPHIL # 1.8 10^3/ul (1.6-7.5); PLATELET COUNT 281 10^3/UL (140-415); RED BLOOD COUNT 4.98 10^6/ul (4.20-5.40); RED CELL DISTRIBUTION WIDTH 12.6 % (11.5-14.5)
[2019-02-12 08:55] LABS: WHITE BLOOD COUNT 3.6 10^3/ul (4.8-10.8)
[2019-02-12 09:05] LABS: ANION GAP 6 (5-13); BLOOD UREA NITROGEN 20 mg/dl (7-20); CALCIUM 9.3 mg/dl (8.4-10.2); CARBON DIOXIDE 23 mmol/L (21-31); CHLORIDE 112 mmol/L (97-110); CREATININE 0.53 mg/dl (0.44-1.00); Estimated GFR > 60 mL/min (>60); GLUCOSE 104 mg/dl (70-220); POTASSIUM 3.9 mmol/L (3.5-5.1); SODIUM 141 mmol/L (135-144)
[2019-02-12 09:17] LABS: TROPONIN-I < 0.012 ng/ml (0.000-0.120)
== END 2019-02-12 10:25 | disposition home or self-care (01) ==
LOC: E/R 08:12
DX: R51 Headache (principal); I10 Essential (primary) hypertension; Z85.850 Personal history of malignant neoplasm of thyroid; Z79.82 Long term (current) use of aspirin
CPT/HCPCS: 36415; 70450; 71045; 80048; 84484; 85025; 93005; 96374; 99285-25

== ENCOUNTER 2019-02-25 14:11 | Emergency (ER) | payer OTHER ==
[2019-02-25 15:38] LABS: ADD MAN DIFF? NO
[2019-02-25 15:39] LABS: WHITE BLOOD COUNT 4.7 10^3/ul (4.8-10.8)
[2019-02-25 15:39] LABS: BASOPHIL # 0.1 10^3/ul (0.0-0.1); BASOPHILS % 1.1 % (0.0-2.0); EOSINOPHILS # 0.1 10^3/ul (0.0-0.5); HEMATOCRIT 44.9 % (37.0-47.0); HEMOGLOBIN 14.7 g/dl (12.0-16.0); LYMPHOCYTES # 1.4 10^3/ul (0.8-2.9); LYMPHOCYTES % 29.8 % (15.0-51.0); MEAN CORPUSCULAR HEMOGLOBIN 28.5 pg (29.0-33.0); MEAN CORPUSCULAR HGB CONC 32.7 g/dl (32.0-37.0); MEAN PLATELET VOLUME 9.8 fl (7.4-10.4); MONOCYTE # 0.5 10^3/ul (0.3-0.9); MONOCYTES % 11.3 % (0.0-11.0); NEUTROPHIL # 2.6 10^3/ul (1.6-7.5); NEUTROPHILS % 54.8 % (39.0-77.0); PLATELET COUNT 305 10^3/UL (140-415); RED BLOOD COUNT 5.16 10^6/ul (4.20-5.40); RED CELL DISTRIBUTION WIDTH 12.5 % (11.5-14.5)
[2019-02-25] MEDS: BELLADONNA/PHENOBARBITAL TAB PO (15:41)
[2019-02-25] MEDS: LIDOCAINE/MYLANTA 40 ML BTL PO (15:41)
[2019-02-25] MEDS: HYDROmorphONE 1 MG/ML SYG IV (15:42)
[2019-02-25] MEDS: DIPHENHYDRAMINE 50 MG INJ IV (15:42)
[2019-02-25] MEDS: PROCHLORPERAZINE 10 MG INJ IV (15:42)
[2019-02-25 15:57] LABS: ANION GAP 4 (5-13); BLOOD UREA NITROGEN 25 mg/dl (7-20); CALCIUM 9.4 mg/dl (8.4-10.2); CARBON DIOXIDE 32 mmol/L (21-31); CHLORIDE 104 mmol/L (97-110); CREATININE 0.76 mg/dl (0.44-1.00); Estimated GFR > 60 mL/min (>60); GLUCOSE 96 mg/dl (70-220); POTASSIUM 4.8 mmol/L (3.5-5.1); SODIUM 140 mmol/L (135-144)
[2019-02-25 16:08] LABS: TROPONIN-I < 0.012 ng/ml (0.000-0.120)
== END 2019-02-25 18:20 | disposition home or self-care (01) ==
LOC: E/R 14:11
DX: G43.909 Migraine, unspecified, not intractable, without status migrainosus (principal); I10 Essential (primary) hypertension; Z85.850 Personal history of malignant neoplasm of thyroid
CPT/HCPCS: 36415; 70450; 80048; 84484; 85025; 93005; 96374; 96375; 99285-25

== ENCOUNTER 2019-02-27 10:01 | Emergency (ER) | payer OTHER ==
[2019-02-27] MEDS: DIPHENHYDRAMINE 25 MG CAP PO (10:52)
[2019-02-27] MEDS: METHYLPREDNISOLONE 125 MG INJ IM (10:52)
[2019-02-27] MEDS: FAMOTIDINE 20 MG TAB PO (10:52)
== END 2019-02-27 11:40 | disposition home or self-care (01) ==
LOC: FTE 10:01
DX: R21 Rash and other nonspecific skin eruption (principal); I10 Essential (primary) hypertension; Z85.850 Personal history of malignant neoplasm of thyroid
CPT/HCPCS: 96372; 99284-25; J2930